=== PATIENT | female | born 1990 | race Caucasian/White ===

== ENCOUNTER 2021-05-15 11:05 | Emergency (ER) | payer OTHER ==
[~2021-05-15] VITALS: Ht 170.2 cm; Wt 83.8 kg
--- NOTE | 2021-05-15 11:55 | NUR ---
assumed care of pt. attempted to enter room to assess pt, pt in BR
--- NOTE | 2021-05-15 12:05 | NUR ---
pt here for VB x1 day. pt reports that she hs had minimal bleeding, no clots. denies pain SO at bedside
[2021-05-15 12:16] LABS: BASOPHILS % (AUTO) 1 % (0-1); EOSINOPHILS % (AUTO) 3 % (1-7); LYMPHOCYTES % (AUTO) 16 % (22-44); MEAN CORPUSCULAR HEMOGLOBIN 31.3 pg (27.0-34.8); MEAN CORPUSCULAR HGB CONC 34.2 g/dL (32.4-35.8); MEAN PLATELET VOLUME 6.9 fL (7.4-10.4); MONOCYTES % (AUTO) 7 % (2-9); NEUTROPHILS % (AUTO) 74 % (42-75); PLATELET COUNT 318 x10^3/uL (130-400); RED CELL DISTRIBUTION WIDTH 13.7 % (9.6-15.2)
--- NOTE | 2021-05-15 12:18 | NUR ---
urine has been sent. lab has been to bedside to draw pt has been updated on POC report to Joao MUNROE for lunch
[2021-05-15 12:26] LABS: ALANINE AMINOTRANSFERASE 30 U/L (12-78); ALBUMIN 3.4 g/dL (3.4-5.0); ANION GAP 9 mmol/L (5-15); CHLORIDE 106 mmol/L (98-107); CREATININE 0.55 mg/dL (0.55-1.02)
--- NOTE | 2021-05-15 12:41 | NUR ---
TASK RN: PT RESTING IN NAD, VSS. AWAITING U/S.
[2021-05-15 12:44] LABS: ALKALINE PHOSPHATASE 72 U/L (45-117); BILIRUBIN,TOTAL 0.4 mg/dL (0.2-1.0); TOTAL PROTEIN 7.5 g/dL (6.4-8.2)
[2021-05-15 12:47] LABS: MICROSCOPIC INDICATED
--- NOTE | 2021-05-15 12:56 | NUR ---
pt awaiting to go to [facility]
--- NOTE | 2021-05-15 13:05 | NUR ---
pt to [place] via [facility]
--- NOTE | 2021-05-15 13:32 | NUR ---
pt still in [place]
--- NOTE | 2021-05-15 13:59 | NUR ---
pt resting in position of comfort, watching TV no new c/o. no apparent distress
--- NOTE | 2021-05-15 14:00 | NUR ---
chart up for MD recheck
--- NOTE | 2021-05-15 14:15 | NUR ---
Ny ANGUIANO at bedside for recheck
[2021-05-15 14:27] VITALS: BP 100/50
== END 2021-05-15 14:31 | disposition home or self-care (01) ==
LOC: ED 13:00
DX: O20.0 Threatened abortion (principal); Z3A.10 10 weeks gestation of pregnancy
CPT/HCPCS: 36415; 76801; 80053; 81001; 84702; 85025; 86901; 99285